=== PATIENT | male | born 1955 ===

== ENCOUNTER 2024-11-11 09:44 | Day surgery (SDC) | payer OTHER ==
[2024-11-09 10:27] LABS: Absolute Basophils 0.1 K/uL (0-0.5); Absolute Lymphocytes (CBC) 0.9 K/uL (0.7-4.9); Absolute Monocytes 0.8 K/uL (0.1-1.3); Absolute Neutrophil 9.9 K/uL (1.8-8.0); Basophils % 0.9 % (0-1.3); Eosinophils % 0.3 % (0-4.4); Hematocrit 33.1 % (39.6-49.0); Lymphocytes % 7.3 % (15.3-44.8); MCH 27.1 pg (27.0-35.0); MCHC 33.2 g/dL (32.0-36.0); MCV 81.7 fL (80-100); MPV 7.3 fL (7.6-11.3); Monocytes % 6.8 % (3.3-12.3); Neutrophils % 84.7 % (41.7-73.7); Platelets 316 thou/uL (152-406); RBC Red Blood Cell Count 4.05 M/uL (4.33-5.43); Red Cell Distribution Width 20.2 % (12.1-15.2)
[2024-11-09 10:53] LABS: PT Prothrombin Time 12.3 SECONDS (10-13.0); PTT, Activated Partial Thromb 31.4 SECONDS (27.2-37.4); Protime INR 1.08
[2024-11-09 11:20] LABS: Anion Gap 7.2 mEq/L (5.0-15.0); Potassium 4.2 mEq/L (3.5-5.1)
--- NOTE | 2024-11-10 11:50 | EKG ---
Test Date: 2024-11-09 Test Time: 10:03:15 Rebar Fabricator: ANNETTE MEASUREMENT RESULTS: Intervals: Rate: 80 OH: 162 QRSD: 124 QT: 414 QTc: 477 [place]: P: 51 OH: 162 QRS: 47 T: 44 INTERPRETIVE STATEMENTS: Normal sinus rhythm Possible Left atrial enlargement Right bundle branch block Cannot rule out Inferior infarct, age undetermined Abnormal ECG No previous ECG available for comparison Electronically Signed On 11-10-24 11:48:42 CDT by Brendan Banerjee
[2024-11-11] MEDS: Ringers Lactate 1,000 ML IV ONE ×2 (10:00→13:55)
[2024-11-11] MEDS ORDERED: KETOROLAC 30 MG/ML INJ ONE ×2 (11:29→12:49)
[2024-11-11] MEDS ORDERED: dexAMETHasone 10 MG/ML VIAL ONE ×2 (11:29→12:49)
[2024-11-11] MEDS ORDERED: propofoL 200 MG/20 ML VIAL IV ONE ×2 (11:29→12:50)
[2024-11-11] MEDS ORDERED: LIDOCAINE 2% MPF 5 ML VIAL ONE ×2 (11:29→12:49)
[2024-11-11] MEDS ORDERED: ONDANSETRON 4 MG/2 ML VIAL ONE ×2 (11:29→12:49)
[2024-11-11] MEDS ORDERED: MIDAZOLAM HCL 2 MG/2 ML INJ ONE ×2 (11:30→12:50)
[2024-11-11] MEDS ORDERED: ROCURONIUM 50 MG/5 ML VIAL IV ONE (11:30)
[2024-11-11] MEDS ORDERED: FENTANYL CITR 100 MCG/2 ML ONE ×2 (11:30→12:50)
[2024-11-11] MEDS: CEFAZOLIN SODIUM 2 GM/VIAL ONE (12:55)
[2024-11-11] MEDS: LIDOCAINE HCL/EPINEPHRINE 20 ML MDV ONE (13:03)
--- NOTE | 2024-11-11 14:09 | P.OP ---
Preoperative diagnosis: RIGHT Inguinal Hernia Postoperative diagnosis: RIGHT Inguinal Hernia Primary procedure: Open RIGHT Inguinal Hernia Repair with mesh Anesthesia: GETA + Local Estimated blood loss: <5cc Specimen: cord lipoma, hernia sack Findings: direct inguinal hernia Complications: None Implants: Medium Bard Perfix Plug and Patch Transferred to: Recovery Room Condition: Good
[2024-11-11 14:56] VITALS: O2SAT 98
[2024-11-11 16:06] VITALS: BP 110/70; TEMP 97.2
--- NOTE | 2024-11-11 20:25 | OP ---
Date of Procedure: 11/11/2024 Surgeon: Jevon Hatfield MD, Preoperative Diagnosis: Right inguinal hernia. Postoperative Diagnosis: Right inguinal hernia. Procedure Performed: Open right inguinal hernia repair with mesh. Anesthesia: General endotracheal plus local 1% lidocaine with epinephrine. Estimated Blood Loss: 5 cc. Specimens: Cord lipoma and hernia sac. Findings: Direct inguinal hernia. Complications: None. Implants: Medium Bard PerFix plug and patch hernia repair system. Disposition: The patient was transferred to recovery room in good condition. Procedure In Detail: After informed consent was obtained, patient was brought to the operating room, prepped and draped in usual sterile fashion. After adequate anesthesia was achieved, a mid inguinal incision was made in the right lower quadrant with a 15 blade down to subcutaneous tissues. I disse cted down through [place] fat and Thom fascia to expose the external oblique aponeurosis. It was op ened sharply at this point with a 15 blade. I then opened in its entirety using Metzenbaum scissors, protecting the ilioinguinal and iliohypogastric nerve throughout. After it was opened in its entire ty, I dissected free a direct inguinal hernia off the spermatic cord and structures after they were e ncircled with a [place] drain. At this point, I opened the hernia sac, reduced the intestinal conten ts back to the preperitoneal space, and closed the hernia sac imbricating at this point after it was ligated appropriately. I then palpated an area in the preperitoneal space to allow for placement of a plug. At this point, a medium plug was determined to be appropriate size. I then deployed a Bard PerFix medium plug into the preperitoneal space and secured it circumferentially around using the 2-0 PDS sutures on the shelving edge. At this point, I irrigated the area copiously and dried it up at this point. I then placed a patch on the floor of the inguinal canal and reconstructed the deep ingu inal ring using same said 2-0 PDS sutures on the internal oblique aponeurosis and the undersurface of the inguinal ligament. At this point, deep ring was reconstructed as described with 2-0 PDS suture in an interrupted structure. The area was copiously irrigated once again and then I closed the exter nal oblique aponeurosis using a 3-0 Vicryl in a running fashion. I then irrigated the area once agai n, closed deep dermal plane with the same said 3-0 Vicryl suture. Skin was closed with a 4-0 [place] l in a running fashion. Dermabond was placed over top. The patient tolerated the procedure without incident or complication and transferred to PACU in good condition. All counts were correct at the e nd of the case. REE/SOLO Voice ID: [id number] Report ID: [id number]
== END 2024-11-11 16:00 | disposition home or self-care (01) ==
LOC: OR 09:44
PROVIDERS: ATTEND Surgery
PROC: 0YU50JZ Supplement Right Inguinal Region with Synthetic Substitute, Open Approach (ICD-10-PCS; principal; 2024-11-11 12:15)
DX: K40.90 Unilateral inguinal hernia, without obstruction or gangrene, not specified as recurrent (principal); I10 Essential (primary) hypertension; E78.00 Pure hypercholesterolemia, unspecified
CPT/HCPCS: 93005; 85025; 80048; 36415; 85610; 88302; 85730; 49505; J2704; J2003; J3010; J1100; J2405; J7120 ×2; J2250